=== PATIENT | female | born 1990 | race Caucasian/White ===

== ENCOUNTER 2022-07-08 20:16 | Emergency (ER) | payer OTHER, SELFPAY ==
[2022-07-08 20:20] VITALS: BP 154/99; PULSE 84; RESP 18; TEMP 37.1; O2SAT 100
--- NOTE | 2022-07-08 20:39 | ED.FEMALEGU ---
HPI - Female Genitourinary General Chief complaint: SAMPLE PASTER <Yara Mora PA-C - Last Filed: 07/08/22 21:57> Stated complaint: vaginal discharge <Yara Mora PA-C - Last Filed: 07/08/22 21:57> Time Seen by Provider: 07/08/22 20:26 <Yara Mora PA-C - Last Filed: 07/08/22 21:57> Source: patient <Yara Mora PA-C - Last Filed: 07/08/22 21:57> Mode of arrival: ambulatory <JUAN Issa Last Filed: 07/08/22 21:57> Limitations: no limitations <Yara Mora PA-C - Last Filed: 07/08/22 21:57> History of Present Illness HPI Narrative: This is a 31 year old , currently but unsure of last LMP, that presents to the ER for abnormal vaginal discharge. Ongoing over the last couple of days. Reports she had a positive test a couple of weeks ago. Does report concern for STDs. Reports some vaginal spotting. Denies fever or dysuria. <Yara Mora PA-C - Last Filed: 07/08/22 21:57> Related Data Allergies/Adverse reactions: Allergies Allergy/AdvReac Type Severity Reaction Status Date / Time No Known Allergies Allergy Unverified 01/07/16 11:14 <Yara Mora PA-C - Last Filed: 07/08/22 21:57> Review of Systems Review of Systems: CONSTITUTIONAL: Denies fever GASTROINTESTINAL: Denies abdominal pain, nausea, vomiting GENITOURINARY: Denies dysuria or hematuria. <Yara Mora PA-C - Last Filed: 07/08/22 21:57> All systems reviewed & are unremarkable except as noted in HPI and below <Yara Mora PA-C - Last Filed: 07/08/22 21:57> [facility] Past Medical History Medical History: Medical History (Updated 07/09/22 @ 00:00 by Background Daemon) History of chronic kidney disease History of drug abuse <JUAN Issa Last Filed: 07/08/22 21:57> Social History Social History: Social History (Updated 07/08/22 @ 20:46 by Yara Mora PA-C) Smoking status: Former smoker Substance use: current Substance use type: opiates <Yara Mora PA-C - Last Filed: 07/08/22 21:57> Exam Narrative: GENERAL: Well-appearing, well-nourished, and in no acute distress. HEAD: Normocephalic, atraumatic. EYES: EOMI. CHEST: Clear to auscultation. No respiratory distress. No wheezes rales or rhonchi HEART: Regular rate and rhythm. No murmur heard. Normal peripheral pulses. ABDOMEN: Soft, nontender, nondistended, normal active bowel sounds. EXTREMITIES: Normal range of motion. No edema. SKIN: Warm, dry, no rash. NEURO: No focal deficits. Alert and oriented x3. PSYCH: Normal mood and affect PELVIC: [place] cervix noted with moderate yellow cervical discharge. No bleeding noted on exam <Yara Mora PA-C - Last Filed: 07/08/22 21:57> Course SENIOR ENLISTED ADVISOR/PA Physician Supervision For this encounter, I have reviewed the [facility]ELLE documentation, treatment plan and medical decision making: I was available for consultation as needed. [] <Abiel Gimenez DO - Last Filed: 07/09/22 00:55> Vital Signs Vital signs: Vital Signs Temperature 98.7 F 07/08/22 20:20 Pulse Rate 84 07/08/22 20:20 Respiratory Rate 18 07/08/22 20:20 Blood Pressure 154/99 H 07/08/22 20:20 Pulse Oximetry 100 07/08/22 20:20 Oxygen Delivery Room Air 07/08/22 20:20 Temperature 98.7 F 07/08/22 20:20 Pulse Rate 84 07/08/22 20:20 Respiratory Rate 18 07/08/22 20:20 Blood Pressure 154/99 H 07/08/22 20:20 Pulse Oximetry 100 07/08/22 20:20 Oxygen Delivery Room Air 07/08/22 20:20 <Yara Mora PA-C - Last Filed: 07/08/22 21:57> Vital Signs Temperature 98.7 F 07/08/22 20:20 Pulse Rate 84 07/08/22 20:20 Respiratory Rate 18 07/08/22 20:20 Blood Pressure 154/99 H 07/08/22 20:20 Pulse Oximetry 100 07/08/22 20:20 Oxygen Delivery Room Air 07/08/22 20:20 Temperature 98.7 F 07/08/22 20:20 Pulse Rate 84 07/08/22 20:20 Respiratory Rate 18 07/08/22 20:20 Blood Pressure 154/99 H 0
[2022-07-08 20:59] LABS: Basophils Absolute Auto 0.1 K/mm3 (0.0-0.1); Basophils Percent Auto 0.6 % (0.2-1.2); Eosinophils Absolute Auto 0.4 K/mm3 (0-0.3); Eosinophils Percent Auto 3.5 % (0-4.4); Hematocrit 36.4 % (37.0-47.0); Hemoglobin 11.7 g/dL (12.0-15.0); Immature Granulocyte Absolute 0.05 K/mm3 (0.00-0.031); Immature Granulocyte Percent A 0.5 % (0-0.5); Lymphocytes Absolute Auto 2.07 K/mm3 (0.9-3.2); Lymphocytes Percent Auto 18.7 % (18.3-44.2); Mean Corpuscular HGB Conc 32.1 g/dl (32-36); Mean Corpuscular Hemoglobin 27.3 pg (26-34); Mean Corpuscular Volume 84.8 fl (80-100); Monocytes Absolute Auto 0.8 K/mm3 (0.1-0.6); Monocytes Percent Auto 6.8 % (2.6-8.5); Neutrophils Absolute Auto 7.8 K/mm3 (1.3-6.7); Neutrophils Percent Auto 69.9 % (45.5-73.1); Platelet Count Result 376 k/mm3 (150-375); Red Blood Count 4.29 M/mm3 (4.2-5.4); Red Cell Distribution Width 14.1 % (11.5-14.5); White Blood Count 11.1 K/mm3 (4.5-10.0)
[2022-07-08 21:08] LABS: Anion Gap 10 mmol/L (8-16); Blood Urea Nitrogen 8 mg/dL (7-17); Calcium 9.2 mg/dL (8.4-10.2); Carbon Dioxide 28 mmol/L (22-30); Chloride 98 mmol/L (98-107); Estimated Glomerular Filt Rate > 60; Glucose 96 mg/dL (65-110); Potassium 3.5 mmol/L (3.4-5.0); Sodium 136 mmol/L (137-145)
[2022-07-08 21:30] LABS: Appearance Urine Cloudy (Clear); Bilirubin Urine Negative (Negative); Blood Urine 2+ (Negative); Color Urine Yellow (Yellow); Glucose Urine UA Negative (Negative); Ketones Urine Negative (Negative); Leukocyte Esterase Ur 3+ LEU/UL (Negative); Nitrate Urine Positive (Negative); Protein Urine 2+ mg/dL (Negative); Specific Grav Ur 1.015 (1.001-1.035); Urobilinogen Urine 0.2 mg/dL (<2.0)
[2022-07-08 21:34] LABS: Amorphous Sediment Urine Few; Bacteria Urine Trace /hpf; Mucus Urine Rare /lpf; RBC Urine 21-50 /hpf (0-2); Squamous Epithelial Cell Urine Few /hpf (Few); WBC Clumps Urine Present /HPF; WBC Urine >75 /hpf
[2022-07-08 21:35] LABS: Add Urine Microscopic? YES
== END 2022-07-08 21:48 | disposition left against medical advice (07) ==
PROVIDERS: Physician Assistant; Emergency Provider Emergency Medicine
DX: O23.41 Unspecified infection of urinary tract in pregnancy, first trimester (principal); O98.319 Other infections with a predominantly sexual mode of transmission complicating pregnancy, unspecified trimester; A59.9 Trichomoniasis, unspecified; N39.0 Urinary tract infection, site not specified; O99.891 Other specified diseases and conditions complicating pregnancy; N18.9 Chronic kidney disease, unspecified; Z87.891 Personal history of nicotine dependence; Z3A.00 Weeks of gestation of pregnancy not specified
CPT/HCPCS: 36415; 80048; 81001; 81025; 84702; 85025; 85461; 87070; 87086; 87147; 87181; 87186; 87491; 87591; 87808; 99284

== ENCOUNTER 2023-12-11 05:27 | Emergency (ER) | payer OTHER, SELFPAY ==
--- NOTE | ~2023-12-11 | US_ITS ---
Duplex Sonography of the right extremity: Indication: Swelling Findings: Sagittal and transverse B-mode images as well as color-flow imaging were performed on the r ight femoral and popliteal veins. B-mode examination was done without and with compression in the tr ansverse plane. There is good visualization of the common femoral, proximal profunda femoral, superf icial femoral, greater saphenous, and popliteal veins. Normal flow was seen on color-flow imaging. N ormal compressibility was demonstrated. There is a fluid collection at the medial aspect of the right knee, precise location unclear, possibl y Uriostegui's cyst. Impression: No evidence of deep vein thrombosis involving the right femoral, greater saphenous, superficial femor al, or popliteal veins. Fluid collection the medial aspect of the right knee, with unclear precise location. Uriostegui's cyst is a potential consideration. Reviewed, dictated and finalized at location . ANTINE OFFICER Impression: No evidence of deep vein thrombosis involving the right femoral, greater saphen ous, superficial femoral, or popliteal veins. Fluid collection the medial aspect of the right knee, with unclear precise loca tion. Uriostegui's cyst is a potential consideration.
--- NOTE | ~2023-12-11 | XR_ITS ---
Right Knee Technique: AP, lateral, and oblique views were obtained. Clinical History: Swelling Findings: No fracture or dislocation is seen. Osseous alignment is anatomic. Joint spaces are preserv ed without degenerative or erosive change. Soft tissues are unremarkable. No joint effusion is seen. Impression: Unremarkable right knee radiographs. Reviewed, dictated and finalized at [facility]. K TENDER Impression: Unremarkable right knee radiographs.
[2023-12-11 05:31] VITALS: BP 134/75; PULSE 104; RESP 20; TEMP 36.2; O2SAT 100
[2023-12-11 05:39] VITALS: BP 143/104; PULSE 110; RESP 15; O2SAT 100
--- NOTE | 2023-12-11 07:10 | ECG_ITS ---
Measurements Intervals [place] Rate: 98 P: 69 MO: 163 QRS: 37 QRSD: 81 T: 56 QT: 392 QTc: 501 Interpretive Statements SINUS RHYTHM LEFT ATRIAL ENLARGEMENT NONSPECIFIC T-WAVE ABNORMALITY- INF/HIGH LAT LEADS BORDERLINE ECG NO PREVIOUS ECG AVAILABLE FOR COMPARISON Electronically Signed On 12-11-2023 7:58:47 SEWER CONNECTOR by Michael Isabel D.O.
--- NOTE | 2023-12-11 07:13 | ED.EXTPRO ---
HPI - Extremity Problem General Chief complaint: Extremity Problem,Nontraumatic Stated complaint: Right leg swelling Time Seen by Provider: 12/11/23 06:55 History of Present Illness HPI Narrative: 33-year-old female with history of congestive heart failure secondary to presents to the emergency department complaining of right leg swelling that has been ongoing for the past 2 months. Patient denies any chest pain or shortness of breath with this. Patient has not had follow-up with primary care physician or with Cardiology. Patient denies any pain or injury. Patient denies any prior history of PE or DVT. Patient reports there was no worsening of the symptoms but that she had access to a vehicle so she presented to the ED for evaluation. Patient is resting comfortably at time of examination. Related Data Allergies Allergy/AdvReac Type Severity Reaction Status Date / Time No Known Allergies Allergy Verified 12/11/23 05:42 Review of Systems Review of Systems: All systems reviewed & are unremarkable except as noted in HPI and below PMFSH Past Medical History Medical History (Updated 12/11/23 @ 09:24 by Bertrand Gimenez MD) History of chronic kidney disease History of drug abuse Social History Social History (Updated 07/08/22 @ 20:46 by Yara Mora PA-C) Smoking status: Former smoker Substance use: current Substance use type: opiates Exam Narrative: APPEARANCE: Well appearing, no pain, no distress, well-nourished. HEAD: normocephalic, atraumatic. EYES: PERRLA/EOMI, conjunctivae clear. NOSE: Normal no drainage RESPIRATORY: Airway patent, respirations nonlabored. Clear to auscultation bilaterally, no rales, rhonchi, wheezing. CARDIOVASCULAR: Regular rate and rhythm without murmurs rubs or gallops. ABDOMINAL: Soft, nontender, nondistended, normal bowel sounds MUSCULOSKELETAL: Moves all extremities. Right lower extremity swelling NEURO: Alert. Cranial nerves II through XII intact. Grossly intact SKIN: Warm, dry. Normal Color Course Course Emergency Course: 33 old female present to the emergency department for evaluation right knee and lower leg swelling. X-ray showed no acute injury. Ultrasound showed possible Uriostegui's cyst but no evidence DVT. Patient's BNP was mildly elevated at 562. Patient is afebrile with no leukocytosis and a stable hemoglobin. Patient was updated on the results of her workup. Patient was encouraged of close follow-up with her primary care physician. All questions concerns were addressed and patient was comfortable with plan for discharge and close follow-up. Patient was also educated on reasons to return to the emergency department. Vital Signs Vital signs: Vital Signs Temperature 97.1 F L 12/11/23 05:31 Pulse Rate 104 H 12/11/23 05:31 Respiratory Rate 20 12/11/23 05:31 Blood Pressure 134/75 12/11/23 05:31 Pulse Oximetry 100 12/11/23 05:31 Oxygen Delivery Room Air 12/11/23 05:31 Temperature 97.1 F L 12/11/23 05:31 Pulse Rate 105 H 12/11/23 09:24 Respiratory Rate 15 12/11/23 09:24 Blood Pressure 124/86 12/11/23 09:24 Pulse Oximetry 100 12/11/23 09:24 Oxygen Delivery Room Air 12/11/23 05:31 MDM - Extremity (Nontraumatic) Differential Diagnosis Differential diagnosis: Likely superficial thrombophlebitis, deep venous thrombosis of upper extremity, lower extremity edema and deep vein thrombosis of lower extremity Lab Data 12/11/23 08:30 12/11/23 08:30 Labs: Lab Results 12/11/23 Range/Units 08:30 WBC 7.8 (4.5-10.0) K/mm3 RBC 3.77 L (4.2-5.4) M/mm3 Hgb 10.0 L (12.0-15.0) g/dL Hct 33.1 L (37.0-47.0) % MCV 87.8 (80-100) fl MCH 26.5 (26-34) pg MCHC 30.2 L (32-36) g/dl RDW 14.2 (11.5-14.5) % Plt Count 347 (150-375) k/mm3 MPV 10.8 H (7.4-10.4) fl Immature Gran % (Auto) 0.4 (0-0.5) % Neut % (Auto) 50.1 (45.5-73.1) % Lymph % (Auto) 25.3 (18.3-44.2
[2023-12-11 07:22] VITALS: BP 125/86; PULSE 98; RESP 12; O2SAT 100
--- NOTE | 2023-12-11 08:04 | PC.NURSE ---
Pt refused to get blood drawn attempted to educate pt on importance of blood draw, pt still refused. EDP notified
[2023-12-11 08:31] VITALS: PULSE 113; RESP 24
[2023-12-11 08:38] LABS: Basophils Absolute Auto 0.1 K/mm3 (0.0-0.1); Basophils Percent Auto 1.1 % (0.2-1.2); Eosinophils Absolute Auto 1.2 K/mm3 (0-0.3); Eosinophils Percent Auto 15.7 % (0-4.4); Hematocrit 33.1 % (37.0-47.0); Immature Granulocyte Absolute 0.03 K/mm3 (0.00-0.031); Immature Granulocyte Percent A 0.4 % (0-0.5); Lymphocytes Absolute Auto 1.98 K/mm3 (0.9-3.2); Lymphocytes Percent Auto 25.3 % (18.3-44.2); Mean Corpuscular HGB Conc 30.2 g/dl (32-36); Mean Corpuscular Hemoglobin 26.5 pg (26-34); Mean Corpuscular Volume 87.8 fl (80-100); Mean Platelet Volume 10.8 fl (7.4-10.4); Monocytes Absolute Auto 0.6 K/mm3 (0.1-0.6); Monocytes Percent Auto 7.4 % (2.6-8.5); Neutrophils Absolute Auto 3.9 K/mm3 (1.3-6.7); Neutrophils Percent Auto 50.1 % (45.5-73.1); Platelet Count Result 347 k/mm3 (150-375); Red Blood Count 3.77 M/mm3 (4.2-5.4); Red Cell Distribution Width 14.2 % (11.5-14.5); White Blood Count 7.8 K/mm3 (4.5-10.0)
[2023-12-11 08:48] LABS: Prothrombin Time 13.2 Seconds (11.1-14.7)
[2023-12-11 08:49] LABS: Alanine Aminotransferase 12 U/L (6-35); Albumin Level 3.7 g/dL (3.5-5.1); Alkaline Phosphatase 83 U/L (38-126); Anion Gap 6 mmol/L (8-16); Aspartate Amino Transferase 20 U/L (14-36); Bilirubin,Total 0.2 mg/dL (0.2-1.3); Blood Urea Nitrogen 16 mg/dL (7-17); Calcium 8.3 mg/dL (8.4-10.2); Carbon Dioxide 35 mmol/L (22-30); Chloride 99 mmol/L (98-107); Estimated CRCL calculation 48 ml/min; Estimated Glomerular Filt Rate 57; Glucose 89 mg/dL (65-110); Potassium 3.6 mmol/L (3.4-5.0); Sodium 140 mmol/L (137-145)
[2023-12-11 08:57] LABS: NT Pro B Type Natriuretic Pept 562 pg/mL (19.9-100)
[2023-12-11 09:24] VITALS: BP 124/86; PULSE 105; RESP 15; O2SAT 100
== END 2023-12-11 09:47 | disposition home or self-care (01) ==
PROVIDERS: Emergency Provider Emergency Medicine
DX: R22.41 Localized swelling, mass and lump, right lower limb (principal); M71.21 Synovial cyst of popliteal space [Baker], right knee; N18.9 Chronic kidney disease, unspecified; O94 Sequelae of complication of pregnancy, childbirth, and the puerperium; O90.3 Peripartum cardiomyopathy; I50.9 Heart failure, unspecified; Z87.891 Personal history of nicotine dependence; R94.31 Abnormal electrocardiogram [ECG] [EKG]
CPT/HCPCS: 36415; 73562; 80053; 83880; 85025; 85610; 85730; 93005; 93971; 99284